=== PATIENT | female | born 1950 | race Caucasian/White ===

== ENCOUNTER → 2017-04-15 | Outpatient (CLI) | payer OTHER, MEDICARE | LOC: FIMAGING 14:59 | PROVIDERS: ATTEND Family Medicine | DX: Z12.31 Encounter for screening mammogram for malignant neoplasm of breast (principal); Z80.3 Family history of malignant neoplasm of breast | CPT/HCPCS: G0202 ==

== ENCOUNTER → 2017-09-21 | Outpatient (CLI) | payer OTHER, MEDICARE | LOC: FIMAGING 14:43 | PROVIDERS: ATTEND Registered Nurse | DX: R05 Cough (principal) ==

== ENCOUNTER → 2017-10-15 | Outpatient (CLI) | payer OTHER, MEDICARE | LOC: BMCIMAGING 15:07 | DX: E04.2 Nontoxic multinodular goiter (principal) | CPT/HCPCS: 76536-PO ==

== ENCOUNTER → 2017-10-23 | Outpatient (CLI) | payer OTHER, MEDICARE ==
[~2017-10-23] MED LIST: LIDOCAINE 1% 300 MG/30 ML SDV ONE
== END ==
LOC: FIMAGING 09:20
PROC: 0G9K3ZZ Drainage of Thyroid Gland, Percutaneous Approach (ICD-10-PCS; principal; 2017-10-23)
DX: E04.1 Nontoxic single thyroid nodule (principal)

== ENCOUNTER → 2018-05-13 | Outpatient (CLI) | payer OTHER, MEDICARE | LOC: FIMAGING 14:52 | PROVIDERS: ATTEND Family Medicine | DX: Z12.31 Encounter for screening mammogram for malignant neoplasm of breast (principal) ==